=== PATIENT | male | born 1965 | race Two or more races ===

== ENCOUNTER 2021-04-21 01:35 | Emergency (ER) | payer OTHER ==
[~2021-04-21] VITALS: Ht 172.7 cm; Wt 84.5 kg
[~2021-04-21 01:35] MED LIST: CIPR500T4 PO; METR-90 PO
--- NOTE | 2021-04-21 01:42 | NUR ---
EKG DONE IN TRIAGE.
[2021-04-21] MEDS ORDERED: ONDANSETRON 2MG/ML, 2ML ONE (01:55)
[2021-04-21] MEDS ORDERED: MORPHINE SULFATE 4 MG/ML, 1ML ONE (01:55)
--- NOTE | 2021-04-21 01:56 | NUR ---
Patient presents to ER c/o left side back pain which radiates to left shoulder since yesterday. Pain increased today. Denies CP, N/V, urinary symptoms, or injury. Patient in NAD. Respirations even and unlabored.
[2021-04-21] MEDS ORDERED: MORPHINE SULFATE 4 MG/ML, 1ML IVPush PRN (02:00)
[2021-04-21] MEDS ORDERED: SODIUM CHLORIDE FLUSH 10ML SYR IVF ONE (02:00)
[2021-04-21] MEDS ORDERED: ONDANSETRON 2MG/ML, 2ML IVPush ONE (02:00)
--- NOTE | 2021-04-21 02:08 | NUR ---
Labs drawn with IV start and sent to lab. Medicated patient per mar. Patient to CT. Urine collected and sent to lab.
[2021-04-21 02:20] LABS: BASOPHILS % (AUTO) 1 % (0-1); EOSINOPHILS % (AUTO) 1 % (1-7); LYMPHOCYTES % (AUTO) 27 % (22-44); MEAN CORPUSCULAR HGB CONC 35.1 g/dL (33.2-36.2); MEAN PLATELET VOLUME 8.1 fL (7.4-10.4); MONOCYTES % (AUTO) 9 % (2-9); NEUTROPHILS % (AUTO) 62 % (42-75); PLATELET COUNT 351 x10^3/uL (130-400); RED BLOOD COUNT 5.08 x10^6/uL (4.38-5.82); RED CELL DISTRIBUTION WIDTH 12.6 % (9.4-14.8)
[2021-04-21 02:29] LABS: ALBUMIN 3.9 g/dL (3.4-5.0); ANION GAP 7 mmol/L (5-15); CALCIUM 9.3 mg/dL (8.5-10.1); CHLORIDE 109 mmol/L (98-107)
[2021-04-21 02:33] LABS: ALANINE AMINOTRANSFERASE 31 U/L (12-78); ALKALINE PHOSPHATASE 115 U/L (45-117); BILIRUBIN,TOTAL 0.4 mg/dL (0.2-1.0); CREATININE 0.91 mg/dL (0.7-1.3); TOTAL PROTEIN 8.6 g/dL (6.4-8.2)
[2021-04-21 02:37] LABS: MICROSCOPIC NOT IND
[2021-04-21 03:15] VITALS: BP 130/83
--- NOTE | 2021-04-21 03:38 | NUR ---
Patient/Caregiver given discharge instructions and they have confirmed that they understand the instructions. Patient ambulatory with steady gait. NAD, all questions answered appropriately, denies additional needs at this time. No personal belongings left in room after discharge.
== END 2021-04-21 03:40 | disposition home or self-care (01) ==
LOC: ED 03:00
DX: S29.012A Strain of muscle and tendon of back wall of thorax, initial encounter (principal); R94.31 Abnormal electrocardiogram [ECG] [EKG]; X58.XXXA Exposure to other specified factors, initial encounter; Y93.89 Activity, other specified; Y92.89 Other specified places as the place of occurrence of the external cause; Y99.8 Other external cause status
CPT/HCPCS: 36415; 74176; 80053; 81003; 85025; 93005; 96374; 96375; 99285; J2270; J2405